=== PATIENT | male | born 1940 | race African-American/Black ===

== ENCOUNTER 2018-12-21 09:28 | Observation (INO) ==
[2018-12-21] MEDS ORDERED: ONDANSETRON 4 MG/2 ML VIAL IV STA (11:03)
[2018-12-21] MEDS ORDERED: HYDROmorphone 2 MG/1 ML VIAL IV STA (11:03)
[2018-12-21 12:19] LABS: Basophils % 0.3 % (0.0-0.8); Hemoglobin 11.8 GM/DL (14.0-18.0); Immature Granulocytes % 0.5 %; Immature Granulocytes Absolute 0.04 #; Lymphocytes # 1.1 10*3/uL (1.4-4.0); Lymphocytes % 12.5 % (21.2-54.2); Mean Corpuscular HGB Conc 31.9 GM/DL (32-36); Mean Platelet Volume 11.3 FL (9.6-12.0); Neutrophils % 80.7 % (38.7-73.9); Platelet Count 157 T/CUMM (130-400); Red Cell Distribution Width 11.5 % (9.3-17.3); White Blood Count 8.7 T/CUMM (4-12)
[2018-12-21] MEDS ORDERED: SODIUM CHLORIDE 0.9% 1,000 ML IV STA (12:25)
[2018-12-21] MEDS ORDERED: PROMETHAZINE 25 MG/1 ML VIAL IM PRN (12:27)
[2018-12-21] MEDS ORDERED: ONDANSETRON 4 MG/2 ML VIAL IV PRN (12:27)
[2018-12-21] MEDS ORDERED: ACETAMINOPHEN 325 MG TABLET PO PRN (12:27)
[2018-12-21] MEDS ORDERED: DEXTROSE 50% 25 GM/50 ML VIAL IV PRN (12:27)
[2018-12-21] MEDS ORDERED: GLUCAGON 1 MG VIAL IM PRN (12:27)
[2018-12-21 12:29] LABS: PT Patient Result 11.3 SECS; Partial Thromboplastin Time 26.8 SECS (0-40)
[2018-12-21] MEDS ORDERED: SODIUM CHLORIDE 0.45% 1,000 ML IV SCH (12:30)
[2018-12-21 12:56] LABS: Osmolality,Calculated 280.4 MOS/KG (273-304)
[2018-12-21] MEDS ORDERED: DIBUCAINE 1% OINT 28 GM TUBE TOP PRN (13:00)
[2018-12-21] MEDS: SODIUM CHLORIDE 0.45% 1,000 ML IV SCH (14:06)
[2018-12-21] MEDS: CIPROFLOXACIN 500 MG TABLET PO SCH (15:05)
[2018-12-21] MEDS: HYDROCORTISONE 25 MG SUPP RECTAL SCH ×2 (15:06→22:23)
[2018-12-21] MEDS ORDERED: INSULIN LISPRO 100 UNIT/ML SUBCUT SCH (16:30)
[2018-12-21 16:34] LABS: Apearance,Urine Slightly Hazy (Clear); Bilirubin,Urine Negative (Negative); Blood, Urine Moderate mg/dL (Negative); Glucose,Urine (UA) 150 mg/dL (Negative); Ketones,Urine Negative (Negative); Nitrite,Urine Negative (Negative); Protein,Urine >=500 MG/DL; RBC,Urine 471 /HPF (0-4); Urine Color Red (Yellow); Urine Specific Gravity 1.007 (1.001-1.035); Urine Urobilinogen < 2.0 EU/DL (0.2-1.0)
[2018-12-21] MEDS: BELLADONNA/OPIUM 30 MG SUPP RECTAL SCH (17:55)
[2018-12-21] MEDS: DOCUSATE SODIUM 100 MG CAPSULE PO SCH (22:23)
[2018-12-22] MEDS: BELLADONNA/OPIUM 30 MG SUPP RECTAL SCH ×2 (00:50→06:30)
[2018-12-22] MEDS: SODIUM CHLORIDE 0.45% 1,000 ML IV SCH ×2 (01:00→09:05)
[2018-12-22] MEDS: CIPROFLOXACIN 500 MG TABLET PO SCH (01:18)
[2018-12-22 05:30] LABS: Basophils % 0.4 % (0.0-0.8); Eosinophils % 0.5 % (0.00-10.9); Hemoglobin 10.6 GM/DL (14.0-18.0); Immature Granulocytes % 0.4 %; Immature Granulocytes Absolute 0.03 #; Lymphocytes # 1.9 10*3/uL (1.4-4.0); Lymphocytes % 24.4 % (21.2-54.2); Mean Corpuscular HGB Conc 32.1 GM/DL (32-36); Mean Platelet Volume 12.2 FL (9.6-12.0); Monocytes % 8.9 % (1.7-12.7); Neutrophils % 65.4 % (38.7-73.9); Platelet Count 153 T/CUMM (130-400); Red Cell Distribution Width 11.5 % (9.3-17.3); White Blood Count 7.8 T/CUMM (4-12)
[2018-12-22 05:50] LABS: Calcium 8.2 MG/DL (8.5-10.1); Osmolality,Calculated 279.5 MOS/KG (273-304)
[2018-12-22] MEDS: DOCUSATE SODIUM 100 MG CAPSULE PO SCH (08:59)
[2018-12-22] MEDS ORDERED: LOSARTAN 50 MG TABLET PO SCH (09:00)
[2018-12-22] MEDS ORDERED: TAMSULOSIN 0.4 MG CAPSULE PO SCH (09:00)
[2018-12-22] MEDS: HYDROCORTISONE 25 MG SUPP RECTAL SCH (09:00)
[2018-12-22] MEDS ORDERED: hydroCHLOROthiazide 25 MG TABLET PO SCH (09:00)
[2018-12-22 12:29] VITALS: BP 164/86
[2018-12-22] MEDS ORDERED: SIMVASTATIN 20 MG TABLET PO SCH (21:00)
== END 2018-12-22 12:35 | disposition home or self-care (01) ==
LOC: EDBD → EDUNIT# → N.EDINP 09:28 → N.ED 09:28 → N.5E 12:53
PROVIDERS: ADMIT Urology; ATTEND Urology